=== PATIENT | male | born 1950 | race Caucasian/White ===

== ENCOUNTER → 2019-07-15 07:29 | Outpatient (CLI) | payer MEDICARE, SELFPAY ==
[2019-07-03 10:31] VITALS: BMI 31.8
--- NOTE | 2019-07-15 15:16 | PFTCOMP_ITS ---
COMPLETE PULMONARY FUNCTION TEST INTERPRETATION Brief HPI: Patient is a 68 year old male, currently under the care of Dr. Patel, who presents to [facility] for complete pulmonary function tests secondary to diagnosis of COPD. Respiratory therapist reports good effort and reproducible results. Interpretation: Forced expiration spirometry shows a severe large airways obstructive ventilatory defect with an FEV1 of 48% predicted. There is no significant bronchodilator response by strict ATS criteria. Spirograms are of good quality and plateau slowly, indicating slowly emptying areas of the lungs. The respiratory flow volume loop shows decreased expiratory flow rates at all lung volumes consistent with airway obstruction. Lung volumes by body plethysmography show a normal total lung capacity at 7.62 L, 112% predicted. FRC and RV are elevated out of proportion. Lung volume measurements are consistent with hyperinflation and air-trapping. Diffusion capacity by carbon monoxide is decreased at 66% predicted. The airway resistance is elevated. No previous pulmonary function tests were available for review. Impression: Irreversible severe large airways obstructive ventilatory defect, resulting in air trapping with hyperinflation, and a symmetric reduction in diffusing capacity, consistent with a diagnosis of COPD.
== END ==
PROVIDERS: PCP Family Medicine; Referring Provider Internal Medicine Critical Care Medicine; Visit Provider Internal Medicine Critical Care Medicine
DX: J44.9 Chronic obstructive pulmonary disease, unspecified (principal)
CPT/HCPCS: 94060; 94726; 94729

== ENCOUNTER → 2019-07-16 07:05 | Outpatient (CLI) | payer MEDICARE, SELFPAY ==
[2019-07-03 10:31] VITALS: BMI 31.8
--- NOTE | 2019-07-16 07:06 | CT_ITS ---
STUDY: LOW DOSE CT LUNG CANCER SCREENING REASON FOR EXAM: Male, 68 years old. 2PPD X 50YR SMOKER. Quit 2 yr ago. Hx of COPD and HTN-rx controlled RADIATION DOSAGE (If Supplied By Facility): CTDIvol = ( 4.02 ) mGy, DLP = ( 139.94 ) mGycm TECHNIQUE: No contrast was administered. Low dose technique was utilized (average mAS-38 and kVp 120). 1.25 mm axial source images with a slice interval of 1.25-mm were reconstructed in lung windows. 2.5 mm axial source images with a slice interval of 2.5-mm were reconstructed in lung windows. 5.0 mm axial source images with a slice interval of 5.0-mm were reconstructed in soft tissue windows. Nodule measured using lung windows on PACS and/or independent workstation with automated measurement of minimum and maximum diameter. Nodule measurement reported as average diameter rounded to the nearest whole number. Growth is defined as an increase ins size of greater than 1.5 mm. COMPARISON: None. NODULES: No suspicious nodules are seen. Emphysema: Emphysematous changes more prominent in the upper lobes. Findings suggestive of a scarring in both upper lobes. Mild increased markings at the right lung base suggestive of scarring. Aorta: Atherosclerotic calcification of the aortic arch. Coronary arteries: Coronary artery calcification. Mediastinal nodes: Small mediastinal lymph nodes. Other chest and abdominal findings: Degenerative changes of the thoracic spine. CT/Low Dose CT Lung Screening IMPRESSION: Lung-RADS category 2 - Continue annual screening with LDCT in 12 months. IMPORTANT NOTES FOR USE: ACR Lung-RADS Version 1.0 Assessment Categories Release Date: August 26, 2013 Category: Coded 0-4 bases on nodule(s) with highest degree of suspicion. Negative screen is defined as categories 1 and 2; a positive screen is defined as categories 3 and 4. Category 3 and 4A nodules that are unchanged on interval CT should be coded as category 2, and individuals returned to screening in 12 months. Category 4X: Category 3 or 4 nodules with additional imaging findings that increase the suspicion of lung cancer, such as spiculation, GGN that doubles in size in 1 year, enlarged lymph notes, etc. Category Modifiers: S (significant finding unrelated to lung cancer) and C (prior history of treated lung cancer) may be added to the 0-4 Lung-RADS Electronically Signed: Prince Wright, at 8:12 EDT , Service support ,
[2019-07-16 07:15] VITALS: PULSE 106; PULSE 108; PULSE 115; PULSE 122; PULSE 123; PULSE 126; O2SAT 91; O2SAT 92; O2SAT 94
--- NOTE | 2019-07-16 14:33 | PCM.PSN.6M ---
PSN 6 Minute Walk Test - 6 Minute Walk Test 6 Minute Walk Test: 6 Minute Walk Test PSN:6-Minute Walk Test Start: 07/16/19 07:35 Freq: Status: Active Protocol: RESP.6MINW Document 07/16/19 07:15 LATA (Rec: 07/16/19 07:38 DARRENA [email or web address]) 6 Minute Walk Test Date Performed 07/16/19 Time Performed 07:15 Height 5 ft 11 in Weight: 95.44 kg Weight in Pounds 210.[address]: Pablo Patel Assistive device used: None Pre-test Oxygen Delivery Method Room Air Pulse Ox (%) 94 Pulse Rate (60-100 beats/min) 106 H Dyspnea Manolo Scale (0-10) 0 Exertion Manolo Scale (6-20) 6 1st minute Oxygen Delivery Method Room Air Pulse Ox (%) 92 Pulse Rate (60-100 beats/min) 115 H 2nd minute Oxygen Delivery Method Room Air Pulse Ox (%) 91 Pulse Rate (60-100 beats/min) 122 H 3rd minute Oxygen Delivery Method Room Air Pulse Ox (%) 92 Pulse Rate (60-100 beats/min) 122 H 4th minute Oxygen Delivery Method Room Air Pulse Ox (%) 92 Pulse Rate (60-100 beats/min) 123 H 5th minute Oxygen Delivery Method Room Air Pulse Ox (%) 91 Pulse Rate (60-100 beats/min) 123 H 6th minute Oxygen Delivery Method Room Air Pulse Ox (%) 92 Pulse Rate (60-100 beats/min) 126 H Dyspnea Manolo Scale (0-10) 1 Exertion Manolo Scale (6-20) 11 Post-test Oxygen Delivery Method Room Air Pulse Ox (%) 94 Pulse Rate (60-100 beats/min) 108 H Full Laps Walked 18 Partial Lap, Number of Tiles Walked 47 Total Distance Walked (ft) 1109 - Interpretation Interpretation: The patient was able to ambulate 1109 feet over the course of 6 minutes on room air with no assistive devices or breaks. The patient did have significant desaturation as low as 91 with persistent tachycardia as high as 126 bpm over the course of testing. These findings are consistent with a cardiopulmonary limitation exercise tolerance. - Recommendations Recommendations: No supplemental oxygen is indicated at this time
== END ==
PROVIDERS: PCP Family Medicine; Referring Provider Internal Medicine Critical Care Medicine; Visit Provider Internal Medicine Critical Care Medicine
DX: J44.9 Chronic obstructive pulmonary disease, unspecified (principal); F17.211 Nicotine dependence, cigarettes, in remission
CPT/HCPCS: 94618; G0297

== ENCOUNTER → 2020-07-10 08:26 | Outpatient (CLI) | payer MEDICARE, SELFPAY ==
[2020-01-30 06:43] VITALS: BMI 29.2
--- NOTE | 2020-07-10 08:33 | CT_ITS ---
STUDY: LOW DOSE CT LUNG CANCER SCREENING REASON FOR EXAM: Male, 69 years old. Tobacco dependency. Annual screening chest CT RADIATION DOSAGE (If Supplied By Facility): CTDIvol = ( 4.02 ) mGy, DLP = ( 155.02 ) mGycm TECHNIQUE: No contrast was administered. Low dose technique was utilized (average mAS-38 and kVp 120). 1.25 mm axial source images with a slice interval of 1.25-mm were reconstructed in lung windows. 2.5 mm axial source images with a slice interval of 2.5-mm were reconstructed in lung windows. 5.0 mm axial source images with a slice interval of 5.0-mm were reconstructed in soft tissue windows. Nodule measured using lung windows on PACS and/or independent workstation with automated measurement of minimum and maximum diameter. Nodule measurement reported as average diameter rounded to the nearest whole number. Growth is defined as an increase ins size of greater than 1.5 mm. COMPARISON: CT chest 07/16/2019. FINDINGS: Lung nodules Stable 2 mm right apical lung nodule on series 2 image 46. No new or enlarging pulmonary nodule. Posterior and medial right lower lobe calcified granulomas. Mild scarring or atelectasis in the posterior right lower lobe. Mild atelectasis in the anterior right middle lobe. Lungs COPD: Mild. Fibrosis: None. Lymph nodes: None. Other findings: None. Pleural space Effusion: None. Calcification: None. Thickening: None. Heart Heart size: Normal. Coronary calcification: Moderate. Pericardial effusion: None. Other findings: Mild aortic atherosclerotic disease. Upper abdomen: None. Thorax: There are degenerative changes of the spine. Base of neck: None. CT/Low Dose CT Lung Screening IMPRESSION: Stable 2 mm right apical lung nodule. No new or enlarging pulmonary nodule. Lung-RADS category 2 - Continue annual screening with LDCT in 12 months. IMPORTANT NOTES FOR USE: ACR Lung-RADS Version 1.0 Assessment Categories Release Date: August 26, 2013 Category: Coded 0-4 bases on nodule(s) with highest degree of suspicion. Negative screen is defined as categories 1 and 2; a positive screen is defined as categories 3 and 4. Category 3 and 4A nodules that are unchanged on interval CT should be coded as category 2, and individuals returned to screening in 12 months. Category 4X: Category 3 or 4 nodules with additional imaging findings that increase the suspicion of lung cancer, such as spiculation, GGN that doubles in size in 1 year, enlarged lymph notes, etc. Category Modifiers: S (significant finding unrelated to lung cancer) and C (prior history of treated lung cancer) may be added to the 0-4 Lung-RADS Electronically Signed: Jessica Paula MD at 9:24 EST Tel , Service support ,
== END ==
PROVIDERS: PCP Family Medicine; Referring Provider Internal Medicine Critical Care Medicine; Visit Provider Internal Medicine Critical Care Medicine
DX: F17.211 Nicotine dependence, cigarettes, in remission (principal)
CPT/HCPCS: 71271

== ENCOUNTER 2021-07-14 15:58 | Outpatient (CLI) | payer MEDICARE, SELFPAY ==
--- NOTE | 2021-07-14 16:03 | CT_ITS ---
STUDY: LOW DOSE CT LUNG CANCER SCREENING REASON FOR EXAM: Male, 70 years old. smoker and gt; 40 pack years RADIATION DOSAGE (If Supplied By Facility): CTDIvol = ( 4.02 ) mGy, DLP = ( 137.43 ) mGycm TECHNIQUE: No contrast was administered. Low dose technique was utilized (average mAS-38 and kVp 120). 1.25 mm axial source images with a slice interval of 1.25-mm were reconstructed in lung windows. 2.5 mm axial source images with a slice interval of 2.5-mm were reconstructed in lung windows. 5.0 mm axial source images with a slice interval of 5.0-mm were reconstructed in soft tissue windows. Nodule measured using lung windows on PACS and/or independent workstation with automated measurement of minimum and maximum diameter. Nodule measurement reported as average diameter rounded to the nearest whole number. Growth is defined as an increase ins size of greater than 1.5 mm. COMPARISON: 07/10/2020 NODULES: 2 mm nodule in the lateral right upper lobe on image 48 of series 2 is stable. No new noncalcified pulmonary nodule or localized groundglass opacity. Mild fibrotic scarring in the right middle lobe and right lower lobe stable. Granuloma in the right lower lobe is stable. Emphysema: Mild centrilobular emphysema. Endobronchial lesion: None Aorta: Atherosclerosis and tortuosity. Coronary arteries: Severe atherosclerosis Heart: Normal size Pulmonary artery: Unremarkable for an opacified. Mediastinal nodes: No adenopathy. There are calcified right hilar lymph nodes. Other chest and abdominal findings: None significant CT/Low Dose CT Lung Screening IMPRESSION: Lung-RADS category 2 - Continue annual screening with LDCT in 12 months. IMPORTANT NOTES FOR USE: ACR Lung-RADS Version 1.1 Assessment Categories Release Date: 2018 Category: Coded 0-4 bases on nodule(s) with highest degree of suspicion. Negative screen is defined as categories 1 and 2; a positive screen is defined as categories 3 and 4. Category 3 and 4A nodules that are unchanged on interval CT should be coded as category 2, and individuals returned to screening in 12 months. Category 4X: Category 3 or 4 nodules with additional imaging findings that increase the suspicion of lung cancer, such as spiculation, GGN that doubles in size in 1 year, enlarged lymph notes, etc. Category Modifiers: S (significant finding unrelated to lung cancer) Electronically Signed: Rogelio Palacios MD ([place]) at 9:42 EDT Reading Location ID and State: [facility] / [place] , Service support ,
== END 2021-07-14 23:59 | disposition home or self-care (01) ==
LOC: CT 16:02
PROVIDERS: PCP Family Medicine; Referring Provider Nurse Practitioner Acute Care; Visit Provider Nurse Practitioner Acute Care
DX: F17.210 Nicotine dependence, cigarettes, uncomplicated (principal)
CPT/HCPCS: 71271

== ENCOUNTER → 2021-10-06 | Outpatient (CLI) | payer MEDICARE, SELFPAY ==
[2021-10-06 14:02] VITALS: PULSE 102; PULSE 107; PULSE 116; PULSE 118; PULSE 120; PULSE 123; PULSE 126; O2SAT 86; O2SAT 88; O2SAT 89; O2SAT 91; O2SAT 94
--- NOTE | 2021-10-06 14:05 | CPS ---
Patient wears 2.5-3 lpm at home. Patient came in on 3 lpm pulse dose. SpO2 86% on room air. Patient placed back on 3 lpm pulse dose, SpO2 recovered to 91%. Had to increase to 4 lpm pulse dose by the 1st minute. Increased to 5 lpm pulse dose by the 2nd minute. At the 3rd minute SpO2 86% on 5 lpm pulse dose. Placed patient on 4 lpm continuous O2. At the 5th minute increased to 6 lpm minute for the last minute of walking. Every time liter flow was increased patient was given a break to recover.
--- NOTE | 2021-10-06 14:37 | PCM.PSN.6M ---
PSN 6 Minute Walk Test 6 Minute Walk Test 6 Minute Walk Test: 6 Minute Walk Test PSN:6-Minute Walk Test Start: 10/06/21 14:01 Freq: Status: Active Protocol: RESP.6MINW Document 10/06/21 14:02 MEETFELECIA (Rec: 10/06/21 14:09 JASON [id number]) 6 Minute Walk Test Date Performed 10/06/21 Time Performed 12:45 Height 5 ft 11 in Weight: 104.326 kg Weight in Pounds 230.[address]: Pablo Patel Assistive device used: None Pre-test Oxygen Flow Rate (L/min) (L/min) 3 Oxygen Delivery Method Nasal Cannula Pulse Ox (%) 91 Pulse Rate (60-100 beats/min) 107 H Dyspnea Manolo Scale (0-10) 0 Exertion Manolo Scale (6-20) 6 1st minute Oxygen Flow Rate (L/min) (L/min) 3 Oxygen Delivery Method Nasal Cannula Pulse Ox (%) 88 Pulse Rate (60-100 beats/min) 116 H 2nd minute Oxygen Flow Rate (L/min) (L/min) 4 Oxygen Delivery Method Nasal Cannula Pulse Ox (%) 88 Pulse Rate (60-100 beats/min) 118 H 3rd minute Oxygen Flow Rate (L/min) (L/min) 5 Oxygen Delivery Method Nasal Cannula Pulse Ox (%) 86 Pulse Rate (60-100 beats/min) 120 H 4th minute Oxygen Flow Rate (L/min) (L/min) 4 Oxygen Delivery Method Nasal Cannula Pulse Ox (%) 89 Pulse Rate (60-100 beats/min) 118 H 5th minute Oxygen Flow Rate (L/min) (L/min) 4 Oxygen Delivery Method Nasal Cannula Pulse Ox (%) 86 Pulse Rate (60-100 beats/min) 123 H 6th minute Oxygen Flow Rate (L/min) (L/min) 6 Oxygen Delivery Method Nasal Cannula Pulse Ox (%) 89 Pulse Rate (60-100 beats/min) 126 H Dyspnea Manolo Scale (0-10) 3 Exertion Manolo Scale (6-20) 14 Post-test Oxygen Flow Rate (L/min) (L/min) 6 Oxygen Delivery Method Nasal Cannula Pulse Ox (%) 94 Pulse Rate (60-100 beats/min) 102 H Full Laps Walked 12 Partial Lap, Number of Tiles Walked 20 Total Distance Walked (ft) 728 06/08/22 14:05 Cardiopulmonary Services by Parisa Wright Patient wears 2.5-3 lpm at home. Patient came in on 3 lpm pulse dose. SpO2 86% on room air. Patient placed back on 3 lpm pulse dose, SpO2 recovered to 91%. Had to increase to 4 lpm pulse dose by the 1st minute. Increased to 5 lpm pulse dose by the 2nd minute. At the 3rd minute SpO2 86% on 5 lpm pulse dose. Placed patient on 4 lpm continuous O2. At the 5th minute increased to 6 lpm minute for the last minute of walking. Every time liter flow was increased patient was given a break to recover. Initialized on 10/06/21 14:05 - END OF NOTE Interpretation Interpretation: Patient noted to be 91% on 3 L pulsed dose at rest with significant tachycardia at 107 bpm. Patient was ambulated for 6 minutes and failed to be controlled despite 6 L continuous flow supplemental oxygen. Patient had persistent tachycardia as high as 126 bpm during testing. In total, the patient traveled 728 feet over the course of 6 minutes with the assistance of 4 breaks. These findings are consistent with a respiratory limitation exercise tolerance. Recommendations Recommendations: Patient should be using 3 L pulsed dose at rest, but it appears that hypoxia is not controlled on pulse dose with ambulation. Patient would benefit from transition to continuous supplemental oxygen.
== END | disposition home or self-care (01) ==
LOC: PSN 12:46
PROVIDERS: PCP Family Medicine; Referring Provider Internal Medicine Critical Care Medicine; Visit Provider Internal Medicine Critical Care Medicine
DX: J96.11 Chronic respiratory failure with hypoxia (principal)
CPT/HCPCS: 94618

== ENCOUNTER → 2022-07-16 | Outpatient (CLI) | payer MEDICARE, SELFPAY ==
--- NOTE | 2022-07-16 08:48 | CT_ITS ---
EXAM: CT CHEST, LUNG CANCER SCREENING WITHOUT INTRAVENOUS CONTRAST CLINICAL INDICATION: 50 pack years quit 2018 TECHNIQUE: Helically acquired images were obtained of the chest without intravenous contrast using low dose (LDCT) lung cancer screening protocol. This CT exam was performed using one or more of the following dose reduction techniques: automated exposure control, adjustment of the mA and/or kV according to patient size, and/or use of iterative reconstruction technique. This report was created using [email or web address] report generation technology. COMPARISON: 07/14/2021 FINDINGS: LUNGS AND PLEURAL SPACES: There are mild emphysematous changes seen within the upper lobes. There is a lobular noncalcified nodule in the right lower lobe that measures 10 x 3 mm seen on series 2 image 157. This has the appearance of 2 smaller nodule abutting it other. This was not present on the previous exam. Calcified nodules again seen at the right base and is unchanged. Previously described 2 mm nodule in the right upper lobe is not visualized. No pleural effusion or thickening. No pneumothorax. HEART: Unremarkable. Heart size is normal. No pericardial effusion. No significant coronary artery calcifications. MEDIASTINUM: Unremarkable. No mediastinal or hilar adenopathy. Esophagus is unremarkable. No hiatal hernia. THYROID: Unremarkable. No thyroid lesions. BONES/JOINTS: Unremarkable. No suspicious lytic or blastic abnormality. VASCULATURE: Unremarkable. Thoracic aorta is non-dilated. LYMPH NODES: Unremarkable. No enlarged lymph nodes. CT/Low Dose CT Lung Screening IMPRESSION: Noncalcified nodules in the right lower lobe was not seen on the previous exam. Calcified nodule in the right lung base is stable. There are stable emphysematous changes in the upper lobes. Lung-RADS score: 3 - Probably Benign. Recommend low-dose CT (LDCT) in 6 months. Electronically Signed: Andreas Siddiqi MD at 0:17 EDT ,
== END | disposition home or self-care (01) ==
PROVIDERS: PCP Family Medicine; Visit Provider Nurse Practitioner Acute Care
DX: F17.210 Nicotine dependence, cigarettes, uncomplicated (principal)
CPT/HCPCS: 71271

== ENCOUNTER → 2022-08-26 | Outpatient (CLI) | payer MEDICARE, SELFPAY ==
--- NOTE | 2022-08-26 13:48 | ECHOD_ITS ---
Reason For Study: CHRONIC RESP FAILURE W/HYPOXIA Procedure This was a 2D Doppler, Color Flow transthoracic echocardiogram. The study was technically difficult. Due to body habitus, COPD, & EMPHYSEMA. UNABLE TO USE DEFINITY FOR ENDOCARDIAL IMAGING DUE TO INCREASED PAP >55 mmHg. Exam performed in department. Left Ventricle Normal LV size. The estimated ejection fraction is 55 %. No evidence for diastolic dysfunction. No regional wall motion abnormalities noted. Right Ventricle Normal RV size. Normal systolic function. Atria Normal left atrium. Normal right atrium. No doppler evidence for ASD. Mitral Valve There is no mitral valve stenosis. Trivial mitral valve insufficiency. Tricuspid Valve There is no tricuspid stenosis. Trivial tricuspid valve insufficiency. Pulmonary artery systolic pressure is 60-65 mmHg. Aortic Valve Trisinus/trileaflet aortic valve. There is no aortic stenosis. No aortic valve insufficiency. Pulmonic Valve There is no pulmonic valvular stenosis. No pulmonic valve insufficiency. Great Vessels Normal aortic root. Pericardium/Pleural No pericardial effusion. MMode/2D Measurements & Calculations LVIDd: 6.3 cm IVSd: 1.2 cm Ao root diam: 3.9 cm LVIDs: 4.8 cm LVPWd: 1.2 cm RVDd: 3.7 cm FS: 24.1 % LAV(MOD-bp): 75.9 ml LVAd ap4: 42.5 cm2 LVAd ap2: 31.8 cm2 LAV(MOD-bp) Indexed: 33.3 ml/m2 LVLd ap4: 8.7 cm LVLd ap2: 8.4 cm LAV(MOD-sp2): 76.0 ml EDV(MOD-sp4): 177.5 ml EDV(MOD-sp2): 101.8 ml LAV(MOD-sp4): 72.0 ml EDV(sp4-el): 176.7 ml EDV(sp2-el): 102.5 ml LVAs ap4: 29.4 cm2 LVAs ap2: 22.0 cm2 LVLs ap4: 7.2 cm LVLs ap2: 7.4 cm ESV(MOD-sp4): 102.3 ml ESV(MOD-sp2): 58.7 ml ESV(sp4-el): 101.3 ml ESV(sp2-el): 55.7 ml EF(MOD-sp4): 42.4 % EF(MOD-sp2): 42.3 % EF(sp4-el): 42.7 % SV(MOD-sp4): 75.2 ml SV(MOD-sp2): 43.1 ml SV(sp4-el): 75.4 ml LA dimension(2D): 4.9 cm LA A4 area: 22.9 cm2 RA A4 area: 20.2 cm2 Time Measurements MV dec time: 0.17 sec Doppler Measurements & Calculations MV E max mark: 130.1 cm/sec Lat Peak E' Mark: 10.4 cm/sec Med Peak E' Mark: 12.1 cm/sec MV A max mark: 158.8 cm/sec E/E' lat: 12.5 E/E' med: 10.8 MV E/A: 0.82 MV V2 max: 168.7 cm/sec Ao V2 max: 156.5 cm/sec LV V1 max: 123.3 cm/sec MV max P.4 mmHg Ao max P.8 mmHg LV V1 max P.1 mmHg MV V2 mean: 100.9 cm/sec Ao V2 mean: 112.3 cm/sec LV V1 mean P.8 mmHg MV mean P.9 mmHg Ao mean P.5 mmHg LV V1 mean: 93.6 cm/sec MV V2 VTI: 35.1 cm Ao V2 VTI: 30.3 cm LV V1 VTI: 26.2 cm AV (velocity ratio): 0.86 PA V2 max: 108.6 cm/sec TR max mark: 374.7 cm/sec TR max P.2 mmHg ECHO/Echo Complete Interpretation Summary The estimated ejection fraction is 55 %. No evidence for diastolic dysfunction. Trivial mitral valve insufficiency. Ordering Physician: Pablo Patel Referring Physician: Caroline Schulz Performed By: Stefanie Sotelo, RDCS, RVT
== END | disposition home or self-care (01) ==
LOC: CVS 13:40
PROVIDERS: PCP Family Medicine; Referring Provider Internal Medicine Critical Care Medicine; Visit Provider Internal Medicine Critical Care Medicine
DX: R06.00 Dyspnea, unspecified (principal)
CPT/HCPCS: 93306

== ENCOUNTER → 2023-03-01 | Outpatient (CLI) | payer MEDICARE, SELFPAY ==
--- NOTE | 2023-03-01 13:49 | CT_ITS ---
STUDY: CT CHEST WITHOUT CONTRAST REASON FOR EXAM: Male, 72 years old. Lung Nodule RADIATION DOSAGE (If Supplied By Facility): CTDIvol = ( 15.47 ) mGy, DLP = ( 614.83 ) mGycm TECHNIQUE: Transaxial imaging was performed without the administration of intravenous contrast material. Individualized dose optimization techniques were used for this CT. COMPARISON: Comparison is made with prior study dated July 16, 2022. FINDINGS: CHEST Stable small benign-appearing bilateral axillary lymph nodes. There is a 2.3 cm x 4 cm x 3.4 cm mass in the peripheral lateral aspect of the right lower lobe as seen on axial image #81 and coronal image #228. Biopsy recommended. Mild degree affects symphysis changes. There is no demonstrated pleural abnormality. There are calcifications of the coronary arteries. There are small lymph nodes within the mediastinum, which are normal in size and morphology most compatible with reactive lymph hyperplasia. Normal hilar regions. Normal unenhanced pulmonary arteries. There is atherosclerotic calcification of the aortic arch with tortuosity and elongation of the aortic arch and descending thoracic aorta. There are multi-level degenerative changes of the thoracic spine. There is no demonstrated abnormality of the visualized upper abdomen. CT/Chest without Contrast IMPRESSION: 2.3 cm biopsy recommended. X 4 cm x 3.4 cm mass in the peripheral lateral aspect of the right lower lobe as seen on axial image #81 and coronal image #228. Electronically Signed: Prince Wright MD at 14:56 EDT ,
== END | disposition home or self-care (01) ==
LOC: CT 13:43
PROVIDERS: PCP Family Medicine; Referring Provider Internal Medicine Critical Care Medicine; Visit Provider Internal Medicine Critical Care Medicine
DX: R91.1 Solitary pulmonary nodule (principal)
CPT/HCPCS: 71250

== ENCOUNTER → 2023-03-03 | Outpatient (CLI) | payer MEDICARE, SELFPAY ==
[2023-03-03 14:20] LABS: Platelet Count 213 K/mm3 (150-450)
[2023-03-03 14:29] LABS: Prothrombin Time (Protime)PT. 13.5 SECONDS (11.7-14.9)
[2023-03-03 14:30] LABS: Partial Thromboplast Time 31.4 Seconds (24.1-36.2)
== END | disposition home or self-care (01) ==
PROVIDERS: PCP Family Medicine; Referring Provider Nurse Practitioner Acute Care; Visit Provider Nurse Practitioner Acute Care
DX: I48.91 Unspecified atrial fibrillation (principal); J44.9 Chronic obstructive pulmonary disease, unspecified; R06.00 Dyspnea, unspecified
CPT/HCPCS: 36415; 85049; 85610; 85730

== ENCOUNTER 2023-03-13 08:54 | Outpatient (CLI) | payer MEDICARE, SELFPAY ==
[2023-03-13] VITALS (16 sets, daily range): BP systolic 116–182; BP diastolic 71–129; PULSE 85–99; RESP 17–43; TEMP 36.8; O2SAT 95–100; BMI 32.8
--- NOTE | 2023-03-13 | ASPIGT_PTH ---
PATIENT: EDILMA MCNAMARA LOC: CT U#:[id number] AGE/SX: 72/M ROOM: RE03/13/[address]: ISABEL Valencia : 1950 BED: DIS: 03/13/2023 SPEC #: [id number] RECD: 03/13/23 10:32 STATUS: PADMINI RESunitha #: [id number] NITISH: 03/13/23 00:[address]: Ramona Miller NP DEPT: SURGICAL PATHOLOGY RECD BY: Luli Emmanuel ENTERED: 03/13/23 10:32 SP TYPE: ASP RAD OTHR DR: Dr. Caroline Schulz MD Tissues: Lung, NOS Procedures: FNA Specimen Adequacy Special Stain Group II Surgery Specimen Level IV Imprint (control) HEADER OPERATION: CT-guided lung biopsy PRE-OP DIAGNOSIS: RLL lung mass TISSUE SUBMITTED: RLL lung mass MICROSCOPIC DIAGNOSIS Right lower lobe lung mass, CT-guided needle core biopsy: Metastatic non-small cell carcinoma. Note: Immunohistochemistry ([id number]) shows CD10 and PAX8 positivity along with cytokeratins suggestive of a possible renal primary. Clinical correlation is suggested. AM:david 03/16/2023 COMMENT The specimen is evaluated at the time of biopsy by Dr. Shine. Immediate Evaluation = Positive for malignant cells, non-small cell carcinoma. This case was reviewed and diagnosis discussed with Dr. Shaffer on 03/31/2023. MICROSCOPIC DESCRIPTION Slides are reviewed. GROSS DESCRIPTION Received is one container labeled with the patient's name and designated [facility] lung. The specimen consists of multiple elongated fragments of traore tissue that in aggregate measure 1.0 x 0.6 x <0.1 cm. The specimen is totally submitted in one cassette. Three touch imprints are prepared at the time of core biopsy. / AM:david 03/13/2023 TC:0 CPT: 59783, 70013
--- NOTE | 2023-03-13 | IMM_PTH ---
PATIENT: EDILMA MCNAMARA LOC: CT U#:[id number] AGE/SX: 72/M ROOM: RE03/13/[address]: ISABEL Valencia : 1950 BED: DIS: 03/13/2023 SPEC #: [id number] RECD: 03/14/23 13:45 STATUS: PADMINI REQ #: [id number] NITISH: 03/13/23 00:[address]: Ramona Miller NP DEPT: IMMUNOHISTOCHEMISTRY RECD BY: Nini Villagran ENTERED: 03/14/23 13:47 SP TYPE: IMMUNO OTHR DR: Dr. Caroline Schulz MD Tissues: Right lower lobe of lung, NOS Procedures: RCC (add) NAPSIN A (add) CD10 (add) CEA (add) CK20 (add) CK7 (add) CK8 (add) HEP PAR (add) KI-67 (add) P53 (add) TTF1 (add) Vimentin (add) 34BE12 (add) Pankeratin (initial) P40 (add) CDX2 (add) PSAP (add) PAX8 (add) MOC-31 (add) S-100 (add) PHYSICIAN & [place] [id number] SPECIMEN INFORMATION: Tissue Source: Right lower lobe of lung Clinical Info: Right lower lobe of lung mass Specimen Number: [id number] CPT code: 65620, 81308 x19 METHODOLOGY: Deparaffinized sections of prefer/formalin-fixed tissue or PAP/DQ stained slides are incubated with monoclonal/polyclonal antibodies/oligonucleotide probes. Localization is made via biotin free immunoperoxidase method. Appropriate controls are performed and reacted as expected. Results on target cell population are indicated in the following table: RESULTS: ANTIBODY / CLONE RESULT AE1-3 (AE1/AE3/PCK26) positive CK7 (OV-TL12/30) positive, focal CK8 (62wsjuC24) positive CK20 (KS20.8) negative CDX2 (TXH1412R) positive 34BE12 (34BE12) positive S-100 (4C4.9) negative TTF-1 (8G7G3/1) negative Napsin A (Rabbit Polyclonal) negative HepPar (OCh1E5) negative RCC (PN-15) negative PSAP (PASE/4LJ) negative P40 (BC28) negative CEA (11-7/TF-3HB-1) negative, focal P53 (DO-7) negative, null pattern Ki-67 (30-9) positive, 50% Vimentin (V9) negative CD10 (56C6) positive PAX8 (MRQ50) positive MOC-31 (4561) positive, rare nuclear These tests were developed and their performance characteristics determined by [facility]. They may not have been cleared or approved by the U.S. Food and Drug Administration. The FDA has determined that such clearance or approval is not necessary. The above immunohistochemical/dualISH markers are ordered and reviewed by the Pathologist. INTERPRETATION: Right lower lobe of lung mass, CT-guided core biopsy: Metastatic non-small cell carcinoma. See comment. AM:david 03/16/2023 Comment: The IHC profile is nonconclusive for definite origin. CD10 and PAX8 positivity suggests possible renal primary.
[2023-03-13] MEDS: Lidocaine 2% (20 ml mdv) 20 ML Vial INFILT (10:09)
--- NOTE | 2023-03-13 10:24 | RAD_ITS ---
STUDY: X-RAY CHEST REASON FOR EXAM: Male, 72 years old. Pneumothorax -- Immediately post lung biopsy TECHNIQUE: AP inspiration and expiration views. COMPARISON: None. FINDINGS: The patient is status post right lung biopsy. No evidence of pneumothorax. RAD/Chest Insp/Exp 2 View IMPRESSION: No evidence of pneumothorax on the immediate post right lung biopsy radiographs. Electronically Signed: Prince Wright MD at 10:49 EST ,
--- NOTE | 2023-03-13 11:04 | PCM.OP.PRO ---
Procedure Report Date of Procedure: 03/13/23 Assessment & Plan Assessment/Plan (1) Lung nodule: PLAN: PROCEDURE: CT GUIDED CORE NEEDLE LUNG BIOPSY ORDERING PROVIDER: Ramona Miller CNP INDICATION: Male, 72 years old. Right lower lobe pleural-based nodule PROVIDER: BOB Lane CONSENT: Written informed consent was obtained having explained the risks, benefits and alternatives in detail with the patient who accepted the risks and agreed to proceed. Laboratory review and clinical assessment was performed. PRE-PROCEDURE SEDATION ASSESSMENT: Current history and physical dictated by referring physician and reviewed. No clinical changes since date of exam. Patient refused sedation due to previous exposures with subsequent adverse reactions. RADIATION DOSAGE (If Supplied By Facility): CTDIvol = 21.09 mGy, DLP = 596.68 mGycm Individualized dose optimization techniques were used for this CT. TECHNIQUE: The patient was placed in a prone position. A noncontrast CT was performed to localize the lesion in the right lower lobe. The skin surface was prepped and draped in a sterile fashion. 2% lidocaine was used for local anesthesia. Using CT guidance, a 20-gauge coaxial biopsy device was advanced to the periphery of the lesion. A total of 5 core specimens were obtained. Specimens were microscopically reviewed by pathology in the CT suite and placed in formalin solution. BioSentry tract sealant system was deployed at the biopsy site, and the biopsy needle was removed. A sterile occlusive dressing was applied to the biopsy site. The patient tolerated the procedure well. An immediate chest xray was ordered, per protocol. A negative biopsy does not exclude malignancy. Further imaging or clinical followup based on patient condition and degree of clinical suspicion for malignancy. Suggest rebiopsy, if biopsy results do not match with clinical scenario. IMPRESSION: 1. CT directed core needle biopsy of right lower lobe nodule using CT image guidance with image documentation as described. Pathology results are pending. 2. Procedural Sedation protocol utilized with independent monitoring by the department nurse. Procedures Radiology Radiology CT Procedures: 10246 Biopsy Lung
--- NOTE | 2023-03-13 12:13 | RAD_ITS ---
STUDY: X-RAY CHEST REASON FOR EXAM: Male, 72 years old. Pneumothorax -- 2 hours post lung biopsy TECHNIQUE: AP inspiration and expiration views. COMPARISON: Comparison is made with prior study done earlier in the day. FINDINGS: No evidence of pneumothorax on the 2 hour post right lung biopsy radiograph. RAD/Chest Insp/Exp 2 View IMPRESSION: No evidence of pneumothorax on the 2 hour post right lung biopsy radiograph. Electronically Signed: Prince Wright MD at 12:26 EST ,
== END 2023-03-13 23:59 | disposition home or self-care (01) ==
LOC: CT 08:55
PROVIDERS: PCP Family Medicine; Referring Provider Nurse Practitioner Acute Care; Visit Provider Nurse Practitioner Acute Care
DX: R91.8 Other nonspecific abnormal finding of lung field (principal)
CPT/HCPCS: 32408; 71046; 77012; 81002; 88172; 88305; 88313; 88341; 88342; C2613

== ENCOUNTER → 2023-03-28 | Outpatient (CLI) | payer MEDICARE, SELFPAY ==
--- NOTE | 2023-03-28 11:00 | PET_ITS ---
EXAMINATION: FDG PET-CT INDICATIONS: A 72-year-old male with apparent history of primary lung carcinoma presenting for presumed initial staging examination. COMPARISON EXAMINATION: None available. INDEX LESION SIZE SUV INTERPRETATION Right lower hemithorax pulmonary parenchyma, right lower lobe 35.6 mm 15.1 Fulfills quantitative criteria for viable neoplasm. TECHNIQUE: Following the intravenous administration of 13.9 mCi of F-18 deoxyglucose via the right antecubital fossa, multiplanar image acquisitions of the head, neck, chest, abdomen and pelvis to level of mid-thigh, lower extremities obtained at one hour post radiopharmaceutical administration contemporaneously interpreted with the current CT of the head, neck, chest, abdomen and pelvis to level of mid-thigh, lower extremities dated 03/28/23 via coregistration reveal: SERUM GLUCOSE LEVEL: 114 mg/dl. HEIGHT: 71 inches. WEIGHT: 232 lbs. FINDINGS: Head/Neck: There is no evidence of abnormal increased glucose metabolism in the pharyngeal mucosal space, parapharyngeal space, bilateral-lateral and anterior neck, hypopharynx and distribution of the laryngeal structures. The visualized portion of the cerebral cortical-subcortical structures demonstrate symmetric and preserved glucose metabolism. CHEST: Facilitated uptake is identified in the right lower posterior lung field, right lower lobe. The calculated maximum standard uptake value is 15.1. The maximum axial diameter of the metabolic, morphologic abnormality is 35.[address] findings are as follows. Emphysematous changes are defined in the bilateral upper lung zones. Right and left axillary soft tissue densities reveal no evidence of increased tracer uptake. There is atherosclerotic calcification defined in the thoracic aorta without evidence of dilatation-aneurysm formation. Coronary arterial calcification is observed. Calcified and noncalcified densities demonstrated in the right lower posterior lung zone are nonglucose avid. Abdomen/Pelvis: Normal physiologic distribution of the radiopharmaceutical is apparent in the hepatic (3.6) and splenic parenchyma, both renal units, bladder and visualized intestinal tract. Diffuse radiopharmaceutical concentration is noted in all four quadrants of the abdomen and pelvis. Pertinent abdomen and pelvis CT findings are as follows. There is atherosclerotic calcification defined in the abdominal aorta without evidence of dilatation-aneurysm formation. Pelvic arterial calcification is observed. There appears to be evidence of cholelithiasis. Colonic diverticulosis is encountered without evidence of diverticulitis. Right and left inguinal soft tissue densities are ametabolic. Skeletal: Degenerative changes are noted in the cervical, thoracic and lumbar spine. PET/PET/CT Tumor Base -Thigh Init IMPRESSION: 1. ABNORMAL EXAMINATION INDICATIVE OF MALIGNANT-VIABLE NEOPLASM. 2. Increased radiopharmaceutical concentration manifest in the right lower hemithorax pulmonary parenchyma, right lower lobe fulfills quantitative criteria for viable neoplasm. If not previously obtained, histopathologic analysis is recommended. 3. No other quantitative significant hypermetabolic abnormalities are noted. There is no definitive scintigraphic evidence of distant metastatic disease. Electronic Signature Juan Joya D.O. Accurate Quantification of SUVs for this report are calculated using the exclusive [employer], ([place]. Patent No. [phone] [phone] patent [phone] ). Standardization and correction of the FDG SUV metric exclusively available with [employer] intellectual property, allow for vendor non-specific objective quantitative sequential FDG PET-CT comparison and otherwise unobtainable optimization of the sensitivity and specificity of the examination. [email or web address]://[email or web address] Electronically Signed: Juan Joya DO at 23:49 EST ,
== END | disposition home or self-care (01) ==
LOC: ONC 10:33
PROVIDERS: PCP Family Medicine; Referring Provider Nurse Practitioner Acute Care; Visit Provider Nurse Practitioner Acute Care
DX: C78.01 Secondary malignant neoplasm of right lung (principal); R91.8 Other nonspecific abnormal finding of lung field
CPT/HCPCS: 78815; A9552

== ENCOUNTER → 2023-04-17 | Outpatient (CLI) | payer MEDICARE, SELFPAY ==
--- NOTE | 2023-04-17 15:31 | MRI_ITS ---
EXAM: MR ABDOMEN WITHOUT AND WITH INTRAVENOUS CONTRAST CLINICAL INDICATION: ABNORMAL PET SCAN TECHNIQUE: Multiplanar and multisequence MR images of the abdomen without and with intravenous contrast. Magnetic field strength 1.5 T. CONTRAST: 22 cc of Clariscan IV. COMPARISON: PET/CT 03/28/2023. FINDINGS: LOWER THORAX: Partially visualized mass in the right lower lobe of the lung that was seen on the prior PET/CT. No pleural effusion. LIVER: Unremarkable. Normal morphology. No focal mass. GALLBLADDER AND BILE DUCTS: Unremarkable. No gallstones. No gallbladder distention or wall edema. No intra- or extrahepatic biliary ductal dilation. PANCREAS: Unremarkable. No focal cystic or solid mass. SPLEEN: Unremarkable. Normal size without focal cystic or solid mass. ADRENALS: Unremarkable. No nodules. KIDNEYS AND URETERS: Unremarkable. Normal renal size and position. No hydronephrosis. INTRAPERITONEAL SPACE: Unremarkable. No ascites or other fluid collection. No free air. VASCULATURE: Unremarkable. Abdominal aorta is non-dilated. LYMPH NODES: No enlarged lymph nodes. MRI/MRI Abd WITH and W/O Contrast IMPRESSION: 1. Partially visualized mass in the right lower lobe of the lung that was seen on the prior PET/CT. 2. No specific intra-abdominal abnormality identified. Electronically Signed: Adrian Hanley MD at 0:08 EST ,
== END | disposition home or self-care (01) ==
LOC: MRI 15:24
PROVIDERS: PCP Family Medicine; Referring Provider Internal Medicine Medical Oncology; Visit Provider Internal Medicine Medical Oncology
DX: R93.41 Abnormal radiologic findings on diagnostic imaging of renal pelvis, ureter, or bladder (principal)
CPT/HCPCS: 74183; A9575

== ENCOUNTER → 2023-04-26 | Outpatient (CLI) | payer MEDICARE, SELFPAY ==
--- NOTE | 2023-04-26 16:04 | MRI_ITS ---
EXAM: MR HEAD WITHOUT AND WITH INTRAVENOUS CONTRAST CLINICAL INDICATION: eval for metastatic disease -- right lung cancer TECHNIQUE: Multiplanar and multisequence MR images of the brain were obtained without and with intravenous contrast. Magnetic field strength 1.5 T. CONTRAST: 20 CC IV CLARISCAN. COMPARISON: No relevant prior studies available. FINDINGS: BRAIN AND EXTRA-AXIAL SPACES: Unremarkable. No intra- or extra-axial hemorrhage. No evidence of acute infarct. No intracranial mass or mass effect. There is preservation of the vanegas/white matter interface. Posterior fossa structures are unremarkable. Ventricles are appropriate for age. No hydrocephalus. Basal cisterns are patent. SELLA: Unremarkable. Normal sella turcica, pituitary gland, infundibular stalk, optic chiasm and hypothalamus. AUDITORY SYSTEM: Unremarkable. The internal auditory canals are patent. BONES/JOINTS: Unremarkable. No discrete lytic or blastic abnormalities. SINUSES: Unremarkable as visualized. Clear. MASTOID AIR CELLS: Unremarkable as visualized. Clear. ORBITS: Unremarkable as visualized. Both globes, extraocular muscles, optic nerves and retrobulbar fat appear unremarkable. VASCULATURE: Small developmental venous anomaly right capsuloganglionic region. MRI/Brain W/WO Contrast IMPRESSION: 1. No evidence of metastatic disease. 2. Small developmental venous anomaly right capsuloganglionic region. Electronically Signed: Adrian Hanley MD at 17:37 EST ,
== END | disposition home or self-care (01) ==
LOC: MRI 15:55
PROVIDERS: PCP Family Medicine; Referring Provider Student in an Organized Health Care Education/Training Program; Visit Provider Student in an Organized Health Care Education/Training Program
DX: C34.91 Malignant neoplasm of unspecified part of right bronchus or lung (principal)
CPT/HCPCS: 70553; A9575

== ENCOUNTER → 2023-08-18 | Outpatient (CLI) | payer MEDICARE, SELFPAY ==
--- NOTE | 2023-08-18 12:48 | CT_ITS ---
HISTORY: treated RLL NSCLC, evaluate response. TECHNIQUE: Helically acquired images were obtained of the chest without contrast. A radiation dose optimization technique was used for this scan. 589 images. COMPARISON: 03/28/2023, 07/16/2022. FINDINGS: LARGE AIRWAYS: Patent. LUNGS: Moderate centrilobular emphysema with very mild biapical scarring. New patchy alveolar and interstitial opacities in the dependent right upper and middle lobes. Patchy alveolar and interstitial opacities in the superior segment of the right lower lobe. 7 x 15 mm irregular nodule contacting the pleura in the right lower lobe, previously 2.4 x 4.4 cm. Calcified right lower lobe granuloma again seen. PLEURA: No pneumothorax or significant pleural effusion. HEART/PERICARDIUM: Heart within normal limits in size with coronary artery calcification. Trace pericardial fluid. VESSELS: Thoracic aorta nondilated. Atherosclerosis present. MEDIASTINUM/VENECIA: No pathologically enlarged adenopathy. UPPER ABDOMEN: Calcified granuloma in the liver. Small left renal cyst. BONES: Degenerative change. No suspicious osteoblastic or osteolytic lesion. CT/Chest without Contrast IMPRESSION: 1.5 cm right lower lobe mass, markedly decreased in size from prior. 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 Recommend continued follow-up. Electronically Signed: Jillian Sweet MD at 12:48 EDT ,
== END | disposition home or self-care (01) ==
LOC: CT 12:48
PROVIDERS: PCP Family Medicine; Referring Provider Student in an Organized Health Care Education/Training Program; Visit Provider Student in an Organized Health Care Education/Training Program
DX: C34.91 Malignant neoplasm of unspecified part of right bronchus or lung (principal)
CPT/HCPCS: 71250

== ENCOUNTER → 2023-11-16 | Outpatient (CLI) | payer MEDICARE, SELFPAY ==
--- NOTE | 2023-11-16 12:59 | CT_ITS ---
EXAM: CT CHEST WITHOUT INTRAVENOUS CONTRAST CLINICAL INDICATION: follow up treated lung cancer -- compare to prior studies TECHNIQUE: Helically acquired images were obtained of the chest without intravenous contrast. This CT exam was performed using one or more of the following dose reduction techniques: automated exposure control, adjustment of the mA and/or kV according to patient size, and/or use of iterative reconstruction technique. COMPARISON: CT therapy planning, 04/19/2023. FINDINGS: LUNGS AND PLEURAL SPACES: Decreased size of the previously identified large nodule in the right lower lobe. There is a nonmasslike opacity in the right lower lobe with associated parenchymal calcifications and somewhat spiculated margins as well as minimal bronchiectasis and peribronchial thickening. No new mass or pulmonary nodules identified. There is diffuse centrilobular emphysema. No pleural effusion or thickening. No pneumothorax. HEART: Coronary artery calcifications and/or stents. No cardiomegaly. Trace pericardial effusion. MEDIASTINUM: No significant abnormality. No mediastinal or hilar adenopathy. Esophagus is unremarkable. No hiatal hernia. THYROID: No significant abnormality. No thyroid lesions. BONES/JOINTS: No significant abnormality. No suspicious lytic or blastic abnormality. VASCULATURE: Atherosclerosis of the aorta and its branch vessels. Thoracic aorta is non-dilated. CT/Chest without Contrast IMPRESSION: 1. Coronary artery calcifications and/or stents. No cardiomegaly. Trace pericardial effusion. Centrilobular emphysema. 2. Likely treatment changes of the previously demonstrated right lower lobe lesion. This is decreased in size although with spiculated margins likely related to radiation therapy. Recommend continued surveillance as indicated. Electronically Signed: Scott Robert DO at 20:17 EDT ,
== END | disposition home or self-care (01) ==
PROVIDERS: PCP Family Medicine; Referring Provider Student in an Organized Health Care Education/Training Program; Visit Provider Student in an Organized Health Care Education/Training Program
DX: C34.91 Malignant neoplasm of unspecified part of right bronchus or lung (principal)
CPT/HCPCS: 71250

== ENCOUNTER → 2024-02-22 | Outpatient (CLI) | payer MEDICARE, SELFPAY ==
--- NOTE | 2024-02-22 08:34 | CT_ITS ---
EXAM: CT CHEST WITHOUT INTRAVENOUS CONTRAST CLINICAL INDICATION: treated left lung cancer, monitoring -- please compare to prior studies TECHNIQUE: Helically acquired images were obtained of the chest without intravenous contrast. This CT exam was performed using one or more of the following dose reduction techniques: automated exposure control, adjustment of the mA and/or kV according to patient size, and/or use of iterative reconstruction technique. RADIATION DOSE: CTDIvol = 16.90 mGy, DLP = 604.06 mGy-cm. COMPARISON: Most recent exam November 16, 2023. Exam August 08, 2023 is not provided. FINDINGS: LUNGS AND PLEURAL SPACES: There is similar appearance of predominantly linear opacities right lower lobe infrahilar region to the posterior-lateral and more superior pleural surfaces appearance suggesting radiation pneumonitis since. Similar narrowing without complete obstruction encased airways. Severe centrilobular with mild biapical scarring. Similar mildly thick band of discoid atelectasis or scarring in the left lingula. No mass. HEART: Similar coronary stents. Similar mild anterior pericardial thickening. Heart size is normal. MEDIASTINUM: Unremarkable. No mediastinal or hilar adenopathy. Esophagus is unremarkable. No hiatal hernia. THYROID: Unremarkable. No thyroid lesions. BONES/JOINTS: No suspicious bone lesions. Multilevel anterior ligamentous ossification at multiple mid to lower thoracic levels. No suspicious lytic or blastic abnormality. VASCULATURE: Advanced atherosclerotic changes with prominent calcification of the origins of the great vessels. No aortic aneurysm or dissection. Calcifications at or near the anterior valve region. LYMPH NODES: Multiple fairly small and ovoid mediastinal lymph nodes are stable. UPPER ABDOMEN: The aorta are patent with slight bilateral testicular masses velocity if partially included liver, spleen, adrenals are without obvious acute abnormality. There are a few minimally prominent periportal lymph nodes but similar to prior exam. The region of the gallbladder is not included. CT/Chest without Contrast IMPRESSION: 1. Similar irregular bands of complex parenchymal density, airway encasement, and architectural distortion involving right lower lobe. Most likely due to postradiation fibrosis and scarring. Stable from November 16, 2023. 2. Advanced COPD. 3. Advanced atherosclerotic changes. 4. No convincing intra-abdominal or skeletal metastatic disease. Most of the abdomen is not included. Electronically Signed: Jennifer June MD at 1:54 EDT ,
== END | disposition home or self-care (01) ==
PROVIDERS: PCP Family Medicine; Referring Provider Student in an Organized Health Care Education/Training Program; Visit Provider Student in an Organized Health Care Education/Training Program
DX: C34.91 Malignant neoplasm of unspecified part of right bronchus or lung (principal)
CPT/HCPCS: 71250

== ENCOUNTER → 2024-03-07 | Outpatient (CLI) | payer MEDICARE, SELFPAY | END | disposition home or self-care (01) | PROVIDERS: PCP Family Medicine; Referring Provider Nurse Practitioner Acute Care; Visit Provider Nurse Practitioner Acute Care | DX: J44.9 Chronic obstructive pulmonary disease, unspecified (principal) | CPT/HCPCS: 94060; 94726; 94729 ==

== ENCOUNTER → 2024-03-14 | Outpatient (CLI) | payer MEDICARE, SELFPAY ==
[2024-03-14 08:15] VITALS: PULSE 108; PULSE 110; PULSE 113; PULSE 95; O2SAT 88; O2SAT 89; O2SAT 91; O2SAT 92; O2SAT 93
== END | disposition home or self-care (01) ==
LOC: PSN 07:55
PROVIDERS: PCP Family Medicine; Referring Provider Nurse Practitioner Acute Care; Visit Provider Nurse Practitioner Acute Care
DX: J44.9 Chronic obstructive pulmonary disease, unspecified (principal)
CPT/HCPCS: 94618

== ENCOUNTER → 2024-06-27 | Outpatient (CLI) | payer MEDICARE, SELFPAY ==
--- NOTE | 2024-06-27 08:21 | CT_ITS ---
PROCEDURE: CHEST WITHOUT CONTRAST REASON FOR EXAM: Right lung cancer. Status post radiation therapy. Follow-up examination. TECHNIQUE: Chest CT without contrast. COMPARISON: Comparison is made with prior study dated February 22, 2024. FINDINGS: Hardware: None. Lymph nodes: Small benign-appearing mediastinal lymph nodes. Heart and Vasculature: Normal heart size. No pericardial effusion. Atherosclerotic calcific plaques of the aortic arch and descending thoracic aorta. Coronary Artery Calcifications: Present Lungs and Airways: Once again, there is evidence of linear opacity with areas of confluence in the right lower lobe and right infrahilar region. The previously seen dominant mass has decreased in size in the peripheral lateral aspect of the right lower lobe. Presently measures 3.5 cm in greatest dimension. The previously seen density in the lingular segment of the left upper lobe is not seen at this time. Pleura: No pleural effusion. No pneumothorax. Upper Abdomen: Visualized portions of the upper abdominal viscera are unremarkable. Bones: Degenerative changes of the thoracic spine. CT/Chest without Contrast IMPRESSION: Findings suggestive of post radiation scarring in the right lower lobe and righ t infrahilar region with slight decrease in size of the previously seen nodular density in the posterior medial segment of the r ight lower lobe. One or more dose reduction techniques were used (e.g., Automated exposure contr ol, adjustment of the mA and/or kV according to patient size, use of iterative reconstruction technique). Reading Location: [id number]
== END | disposition home or self-care (01) ==
PROVIDERS: PCP Family Medicine; Referring Provider Student in an Organized Health Care Education/Training Program; Visit Provider Student in an Organized Health Care Education/Training Program
DX: Z08 Encounter for follow-up examination after completed treatment for malignant neoplasm (principal); Z85.118 Personal history of other malignant neoplasm of bronchus and lung
CPT/HCPCS: 71250

== ENCOUNTER → 2024-12-05 | Outpatient (CLI) | payer MEDICARE, SELFPAY ==
--- NOTE | 2024-12-05 12:51 | CT_ITS ---
PROCEDURE: CHEST WITHOUT CONTRAST 12/05/2024 REASON FOR EXAM: FOLLOW UP TREATED LUNG CANCER TECHNIQUE: Chest CT without contrast. Coronal and Sagittal reconstruction series were provided. One or more dose reduction techniques were used (e.g., Automated exposure control, adjustment of the mA and/or kV according to patient size, use of iterative reconstruction technique RADIATION DOSE SUMMARY: CTDlvol: 14.85 mGy DLP: 557.58 mGycm COMPARISON: Prior study dated June 27, 2024. FINDINGS: Hardware: None Lymph nodes: Small benign-appearing bilateral axillary lymph nodes. Small benign-appearing mediastinal lymph nodes. Heart and Vasculature: The heart is nonenlarged. Atherosclerotic calcifications of the thoracic aorta. Thoracic aorta and pulmonary arteries have normal contours; noncontrast technique limits evaluation. Mild degree of pericardial thickening. Coronary Artery Calcifications: Present Lungs and Airways: Emphysematous changes. Stable appearance of the heterogeneous infiltration with a 3.3 cm x 2.3 cm nodule in the right lower lobe. Stable right infrahilar soft tissue mass. Calcified granuloma is seen in the right lower lobe. Pleura: No pleural effusion. Upper Abdomen: Unremarkable. Bones: Degenerative changes of the thoracic spine. CT/Chest without Contrast IMPRESSION: Coronary artery calcification (CAC) is is present Stable heterogeneous infiltration with small nodular density in the right lower lobe. Stable prominence of the right infrahilar region. Stable calcified granuloma in the right lower lobe as well as calcified right h ilar lymph nodes. Reading Location: [facility]
== END | disposition home or self-care (01) ==
LOC: CT 12:48
PROVIDERS: PCP Family Medicine; Referring Provider Student in an Organized Health Care Education/Training Program; Visit Provider Student in an Organized Health Care Education/Training Program
DX: Z08 Encounter for follow-up examination after completed treatment for malignant neoplasm (principal); Z85.118 Personal history of other malignant neoplasm of bronchus and lung
CPT/HCPCS: 71250

== ENCOUNTER → 2024-12-26 | Outpatient (CLI) | payer MEDICARE, SELFPAY ==
[2024-12-26 09:29] LABS: Hematocrit 39.1 % (40-54); Hemoglobin 12.4 g/dL (13.0-16.5); Immature Granulocytes Count 0.040 X10^3/uL (0.0-0.0); Mean Corp Hgb Conc 31.7 g/dL (32-36); Mean Corpuscular Volume 92.2 fL (80-94); Mean Platelet Vol. 11.0 fl (6.2-12.0); NRBC Flagged by Analyzer 0 % (0-5); Platelet Count 165 K/mm3 (150-450); RBC Distribution Width CV 13.4 % (11.6-14.6); RBC Distribution Width SD 45.1 fl (35.1-43.9); Red Blood Count 4.24 M/mm3 (4.6-6.2); White Blood Count 8.1 K/mm3 (4.4-11.0)
[2024-12-26 17:25] LABS: Xtra Tube EP Lab EXTRA TUBE
[2024-12-31 20:08] LABS: Bluegrass, Kentucky <0.10 kU/L (Class 0); Cat Hair/Dander, Standard <0.10 kU/L (Class 0); Dog Epithelia <0.10 kU/L (Class 0); Elm, American White <0.10 kU/L (Class 0); Oak, White <0.10 kU/L (Class 0); Plantain, English <0.10 kU/L (Class 0); Ragweed, Short/Common <0.10 kU/L (Class 0)
[2025-01-01 05:07] LABS: Aspirgillus flavus Negative (Neg:<1:1); Aspirgillus fumigatus Negative (Neg:<1:1); Aspirgillus niger Negative (Neg:<1:1)
== END | disposition home or self-care (01) ==
PROVIDERS: PCP Family Medicine; Referring Provider Nurse Practitioner Acute Care; Visit Provider Nurse Practitioner Acute Care
DX: J45.909 Unspecified asthma, uncomplicated (principal)
CPT/HCPCS: 36415; 82785; 85025; 86003; 86606

== ENCOUNTER → 2025-01-02 | Outpatient (CLI) | payer MEDICARE, SELFPAY ==
--- NOTE | 2025-01-02 14:45 | CT_ITS ---
PROCEDURE: SINUS/FACIAL BONE 01/02/2025 REASON FOR EXAM: SINUSITIS TECHNIQUE: Procedure Code: CTSI Modality: CT Procedure: SINUS/FACIAL BONE Coronal and Sagittal reconstruction series were provided. One or more dose reduction techniques were used (e.g., Automated exposure control, adjustment of the mA and/or kV according to patient size, use of iterative reconstruction technique). RADIATION DOSE SUMMARY: CTDlvol: 33 mGy DLP: 821 mGycm COMPARISON: None FINDINGS: Frontal: Clear. Frontoethmoidal recesses are clear. Ethmoid: Minimal mucosal thickening. Sphenoid: Clear. Sphenoethmoidal recesses are clear. Maxillary: Minimal mucosal thickening dependently. Turbinates: Normal Nasal Septum: Very mild curvature mid septum to the right. The anterior septum and nasal swell body are directed to the left. Mastoids/Middle Ears: Clear. Calcifications are seen in the palatine tonsillar crypts. Dentures are in place. Alveolar bone loss is seen of the maxilla with disruption of the inferior aspect of the maxillary sinus on the right shown on coronal image 56. Olfactory sinus: Keros 2 (4-7 mm). Atherosclerotic plaque of the carotid bulbs and proximal internal carotid arteries partially imaged. CT/Sinus/Facial Bone IMPRESSION: No significant sinusitis at this time. Reading Location: [id number]
== END | disposition home or self-care (01) ==
LOC: CT 14:43
PROVIDERS: PCP Family Medicine; Referring Provider Otolaryngology; Visit Provider Otolaryngology
DX: J32.9 Chronic sinusitis, unspecified (principal)
CPT/HCPCS: 70486